=== PATIENT | female | born 1980 | race Two or more races ===

== ENCOUNTER 2019-01-09 06:13 | Emergency (ER) | payer MEDICAID ==
[2019-01-09 06:27] VITALS: BP 144/91
--- NOTE | 2019-01-09 07:06 | ED Physician Documentation ---
History of Present Illness - Stated complaint Stated Complaint: FEMALE - Chief complaint Chief Complaint: Abd Pain - History obtained from History obtained from: Patient, Family - Additonal information Additional information: Patient is a 38-year-old female, G2, P2, 5 days status post vaginal deliveryPresenting with urinary retention. Patient and family report that in her prior , this had been an issue and over the last several days she has had multiple episodes of urinary retention requiring straight catheterization and Brower catheter placement. Patient follows with [facility] and they are aware of this issue and attempting to have an urology evaluation performed.Patient reports suprapubic tenderness and nausea without vomiting. Patient denies any issues with bowel movements, as well as any fever, headache, vision changes, leg swelling or other complaints. Patient states that her vaginal bleeding has nearly resolved. Patient has been taking ibuprofen regularly to help with inflammation and discomfort. Patient is breast-feeding. No other improving or worsening factors noted. Review of Systems Constitutional: denies: Fever GI: reports: Abdominal Pain, Nausea. denies: Vomiting : reports: Vaginal bleeding PD PAST MEDICAL HISTORY - Past Medical History Past Medical History: Yes Psych: Depression - Past Surgical History Past Surgical History: No - Present Medications Home Medications: Ambulatory Orders Medication Instructions Recorded Confirmed FLUoxetine [PROzac] 10 mg PO DAILY 01/09/19 01/09/19 - Allergies Allergies/Adverse Reactions: Allergies Allergy/AdvReac Type Severity Reaction Status Date / Time Sulfa (Sulfonamide Allergy Hives Verified 01/09/19 06:29 Antibiotics) - Social History Does the pt smoke?: No Smoking Status: Former smoker Does the pt drink ETOH?: No Does the pt have substance abuse?: No - Immunizations Immunizations are current?: Yes - POLST Patient has POLST: No PD ED PE NORMAL - Vitals Vital signs reviewed: Yes - General General: Alert and oriented X 3, No acute distress, Well developed/nourished - HEENT HEENT: Atraumatic, Moist mucous membranes - Cardiac Cardiac: RRR, No murmur - Respiratory Respiratory: No respiratory distress, Clear bilaterally - Abdomen Abdomen: Soft. No: Non tender (Suprapubic tenderness present), Non distended (Slightly gravid) - Derm Derm: Normal color, Warm and dry, No rash - Extremities Extremities: No deformity, No tenderness to palpate, No edema, No calf tenderness / cord - Neuro Neuro: Alert and oriented X 3, No motor deficit, No sensory deficit - Psych Psych: Normal mood, Normal affect Results - Vitals Vitals: Vital Signs - 24 hr 01/09/19 06:19 Temperature 37.1 C Heart Rate 60 Respiratory 12 Rate Blood Pressure 144/91 H O2 Saturation 94 Oxygen O2 Source Room air - Labs Labs: Laboratory Tests 01/09/19 01/09/19 01/09/19 07:00 07:32 07:32 WBC 7.6 RBC 4.40 Hgb 11.1 L Hct 36.6 L MCV 83.2 MCH 25.2 L MCHC 30.3 L RDW 15.0 Plt Count 255 MPV 9.8 Neut # (Auto) 4.9 Lymph # (Auto) 1.9 [place] # (Auto) 0.5 Eos # (Auto) 0.3 Baso # (Auto) 0.1 Absolute Nucleated RBC 0.00 Nucleated RBC % 0.0 Sodium 140 Potassium 4.2 Chloride 105 Carbon Dioxide 25 Anion Gap 10.0 BUN 10 Creatinine 0.8 Estimated GFR (MDRD) 80 L Glucose 95 Calcium 8.7 Total Bilirubin 0.6 AST 29 ALT 44 Alkaline Phosphatase 115 Total Protein 6.6 L Albumin 3.1 L Globulin 3.5 Albumin/Globulin Ratio 0.9 L Lipase 53 H Urine Color YELLOW Urine Clarity CLEAR Urine pH 7.0 Ur Specific [place] <=1.005 Urine Protein NEGATIVE Urine Glucose (UA) NEGATIVE Urine Ketones NEGATIVE Urine Occult Blood NEGATIVE Urine Nitrite NEGATIVE Urine Bilirubin NEGATIVE Urine Urobilinogen 0.2 (NORMAL) Ur Leukocyte Esterase NEGATIVE Ur Microscopic Review NOT INDICATED Urine Culture Comments NOT INDICATED PD MEDICAL DECISION MAKING - ED course Complexity details: reviewed results, considered differential, d/w patient, d/w family ED course: Patient presenting with persistent urinary retention since vaginal delivery of her child. Patient reports this issue has occurred before in her prior postdelivery. Patient is working with [facility] regarding this issue and is attempting to schedule urology follow-up. Rbower catheter placed and patient had significant output. Patient is already taking ibuprofen. As she is breast-feeding, do not feel it is appropriate to start otherMedications at this time. Patient's urinalysis does not reflect infection and she does not require antibiotics. Screening lab work also relatively unremarkable and abnormalities are expected given her recent delivery. Do not have high suspicion for preeclampsia, eclampsia, help syndrome, or other complication at this time. Feel that she is safe to discharge home with Brower in place. Do feel that it is important for her to follow-up with both midwifery and urology, as well as provided with strict return precautions. Departure - Departure Disposition: 01 Home, Self Care Clinical Impression: Urinary retention Condition: Good Instructions: ED Retention Urinary Female Follow-Up: your,doctor [Other] - Within 3 Days Comments: Please keep Brower catheter in place until follow-up can be scheduled with [facility]. Please continue to work on establishing urology follow-up given the recurrence of your urinary retention. Do not find evidence of infection or other complication at this time that would require antibiotics. As you are breast-feeding, other medications for pain and discomfort are not advised except what you are already taking such as ibuprofen. Return to ED sooner if you experience complication with the catheter, have worsening symptoms, or have other concerns per
[2019-01-09 07:18] LABS: BILIRUBIN,URINE NEGATIVE (NEGATIVE); GLUCOSE, URINE (UA) NEGATIVE (NEGATIVE); KETONES,URINE (UA) NEGATIVE (NEGATIVE); LEUKOCYTE ESTERASE, URINE NEGATIVE (NEGATIVE); NITRITE,URINE NEGATIVE (NEGATIVE); OCCULT BLOOD,URINE NEGATIVE (NEGATIVE); PROTEIN,URINE NEGATIVE (NEGATIVE); UROBILINOGEN,URINE 0.2 (NORMAL) E.U./dL (NORMAL)
[2019-01-09 07:20] LABS: CLARITY,URINE CLEAR (CLEAR)
[2019-01-09 07:45] LABS: BASOPHILS # (AUTO) 0.1 10^3/uL (0.0-0.1); BASOPHILS % (AUTO) 0.7 %; EOSINOPHILS # (AUTO) 0.3 10^3/uL (0.0-0.7); EOSINOPHILS % (AUTO) 3.4 %; HGB - HEMOGLOBIN 11.1 g/dL (12.0-16.0); LYMPHOCYTES # (AUTO) 1.9 10^3/uL (1.5-3.5); LYMPHOCYTES % (AUTO) 25.2 %; MEAN CORPUSCULAR HEMOGLOBIN 25.2 pg (27.0-31.0); MEAN CORPUSCULAR HGB CONC 30.3 g/dL (32.0-36.0); MEAN CORPUSCULAR VOLUME 83.2 fL (81.0-99.0); MEAN PLATELET VOLUME 9.8 fL (7.9-10.8); MONOCYTES # (AUTO) 0.5 10^3/uL (0.0-1.0); MONOCYTES % (AUTO) 6.7 %; NEUTROPHILS # (AUTO) 4.9 10^3/uL (1.5-6.6); NEUTROPHILS % (AUTO) 63.6 %; PLT - PLATELET COUNT 255 10^3/uL (130-450); WHITE BLOOD COUNT 7.6 x10^3/uL (4.8-10.8)
[2019-01-09 07:52] LABS: ALBUMIN 3.1 g/dL (3.2-5.5); ALBUMIN/GLOBULIN RATIO 0.9 (1.0-2.2); BILIRUBIN,TOTAL 0.6 mg/dL (0.2-1.0); CALCIUM 8.7 mg/dL (8.5-10.3); CREATININE 0.8 mg/dL (0.4-1.0); TOTAL PROTEIN 6.6 g/dL (6.7-8.2)
== END 2019-01-09 08:51 | disposition home or self-care (01) ==
LOC: ED 06:13
DX: O90.89 Other complications of the puerperium, not elsewhere classified (principal); R33.9 Retention of urine, unspecified; F32.9 Major depressive disorder, single episode, unspecified; Z87.891 Personal history of nicotine dependence
CPT/HCPCS: 36415; 51702; 80053; 81001; 81003; 83690; 85025; 87086; 99282; 99283

== ENCOUNTER 2021-02-04 16:17 | Outpatient (CLI) | payer OTHER | END 2021-02-04 16:18 | disposition home or self-care (01) | LOC: COV 16:17 | PROVIDERS: ATTEND Family Medicine | DX: R05 Cough (principal); R06.02 Shortness of breath; M79.10 Myalgia, unspecified site; R53.83 Other fatigue; R07.0 Pain in throat; J34.89 Other specified disorders of nose and nasal sinuses; Z20.822 Contact with and (suspected) exposure to COVID-19 ==

== ENCOUNTER 2023-12-30 08:00 | Outpatient (CLI) | payer MEDICAID, OTHER | END 2023-12-30 23:59 | disposition home or self-care (01) | LOC: LAB.WCP 08:00 | PROVIDERS: ATTEND Physician Assistant Medical | DX: J02.9 Acute pharyngitis, unspecified (principal) | CPT/HCPCS: 87070 ==